=== PATIENT | female | born 1980 | race Caucasian/White ===

== ENCOUNTER 2022-03-05 16:27 | Outpatient (CLI) | payer OTHER, SELFPAY ==
[2022-03-05 17:40] LABS: Chloride* 100 mmol/L (96-114); Sodium* 138 mmol/L (135-149)
[2022-03-05 17:41] LABS: Potassium* 3.8 mmol/L (3.6-5.1)
[2022-03-05 17:43] LABS: Carbon Dioxide* 27 mmol/L (20-32); Cholesterol* 195 mg/dL (90-199); Creatinine* 0.8 mg/dL (0.5-1.5); Estimated Glomerular Filt Rate 94 ml/min
[2022-03-05 17:44] LABS: Blood Urea Nitrogen* 17 mg/dL (5-24); Glucose* 81 mg/dL (60-115); HDL Cholesterol* 56 mg/dL (>=50); LDL Cholesterol Calculated 115 mg/dL (<100); Triglycerides* 122 mg/dL (40-149)
[2022-03-05 18:15] LABS: Thyroid Stimulating Hormone* 0.809 uIU/mL (0.270-4.20)
[2022-03-05 18:20] LABS: Ferritin* 72.1 ng/mL (6.24-137.0)
== END 2022-03-05 16:28 | disposition home or self-care (01) ==
PROVIDERS: PCP Family Medicine; Visit Provider Family Medicine
DX: Z01.419 Encounter for gynecological examination (general) (routine) without abnormal findings (principal); R53.83 Other fatigue; D50.9 Iron deficiency anemia, unspecified; Z12.4 Encounter for screening for malignant neoplasm of cervix; Z13.6 Encounter for screening for cardiovascular disorders
CPT/HCPCS: 80048; 80061; 82728; 84443; 87624; 88175